=== PATIENT | female | born 1940 | race African-American/Black ===

== ENCOUNTER → 2019-04-19 | Outpatient (CLI) | payer MEDICARE, BC ==
--- NOTE | 2019-04-19 13:40 | RAD ---
Right lower extremity venous doppler ultrasound History: Right leg pain and swelling Findings: Multiple grayscale, color, and duplex spectral analysis sonographic images were acquired of the right lower extremity veins to evaluate for the presence of DVT. There is normal phasicity. Normal compression, color-flow, and augmentation is demonstrated from the right common femoral to the popliteal veins. There is normal color flow of the proximal greater saphenous and profunda femoris veins. There is normal color flow of segments of the calf veins. Impression: 1. There is no evidence of deep venous thrombosis from the right common femoral to the popliteal veins. Electronically signed by: Bravo Branham MD (04/19/2019 1:37 PM) [id number]
== END | disposition home or self-care (01) ==
LOC: US 12:27
PROVIDERS: ATTEND Internal Medicine
DX: M79.604 Pain in right leg (principal); M79.89 Other specified soft tissue disorders
CPT/HCPCS: 93971

== ENCOUNTER 2020-07-20 17:41 | Emergency (ER) | payer MEDICARE, BC ==
[~2020-07-20] VITALS: Ht 160 cm; Wt 63.6 kg
--- NOTE | 2020-07-20 18:22 | PHYS DOC ---
Past Medical History Past Medical History: Dementia, Hypertension Past Surgical History: No Surgical History Smoking Status: Never Smoker Alcohol Use: None General Adult EDM: Chief Complaint: OTHER COMPLAINTS HPI: HPI: Patient is a 80 year old female with history of dementia, hypertension, who presents to the ED today with the daughter, daughter states they were sitting at home and patient grabbed her chest. She did not complain of any pain. Daughter got concerned and started hitting patient on the back thinking patient is choking, patient was not eating anything at that point. The daughter states she had had some orange juice a couple minutes prior to this. She states patient was not coughing either. She states a couple minutes later patient stopped grabbing her chest then after a few minutes she grabbed her chest again. She states this time she decided to bring patient to the ED. Patient has no complaints and is not grabbing her chest. Review of Systems: Review of Systems: Constitutional: Denies fever or chills. [] Eyes: Denies change in visual acuity. [] HENT: Denies nasal congestion or sore throat. [] Respiratory: Denies cough or shortness of breath. [] Cardiovascular: patient grabbed chest. Denies chest pain or edema. [] GI: Denies abdominal pain, nausea, vomiting, bloody stools or diarrhea. [] : Denies dysuria. [] Musculoskeletal: Denies back pain or joint pain. [] Integument: Denies rash. [] Neurologic: Denies headache, focal weakness or sensory changes. [] Endocrine: Denies polyuria or polydipsia. [] Lymphatic: Denies swollen glands. [] Psychiatric: Denies depression or anxiety. [] Hx provided by daughter. Heart Score: HEART Score for Chest Pain: HEART Score for Chest Pain Response (Comments) Value History Slighlty/Non-Suspicious 0 ECG Normal 0 Age > 65 2 Risk Factors 1 or 2 Risk Factors 1 Troponin < Normal Limit 0 Total 3 Risk Factors: Risk Factors: DM, Current or recent (<one month) smoker, HTN, HLP, family history of CAD, obesity. Risk Scores: Score 0 - 3: 2.5% MACE over next 6 weeks - Discharge Home Score 4 - 6: 20.3% MACE over next 6 weeks - Admit for Clinical Observation Score 7 - 10: 72.7% MACE over next 6 weeks - Early Invasive Strategies Allergies: Allergies: Allergies Coded Allergies Type Severity Reaction Last Updated Verified Penicillins Allergy Unknown 07/20/20 Yes Physical Exam: PE: Constitutional: Well developed, well nourished, no acute distress, non-toxic appearance. [] HENT: Normocephalic, atraumatic, bilateral external ears normal, oropharynx moist, no oral exudates, nose normal. [] Eyes: PERRLA, EOMI, conjunctiva normal, no discharge. [] Neck: Normal range of motion, no tenderness, supple, no stridor. [] Cardiovascular:Heart rate regular rhythm, no murmur [] Lungs & Thorax: Bilateral breath sounds clear to auscultation [] Abdomen: Bowel sounds normal, soft, no tenderness, no masses, no pulsatile masses. [] Skin: Warm, dry, no erythema, no rash. [] Back: No tenderness, no CVA tenderness. [] Extremities: No tenderness, no cyanosis, no clubbing, ROM intact, no edema. [] Neurologic: Alert and oriented X 2, normal motor function, normal sensory function, no focal deficits noted. [] Psychologic: Affect normal, judgement normal, mood normal. [] Current Patient Data: Vital Signs: Vital Signs Date Time Temp Pulse Resp B/P (MAP) Pulse Ox O2 Delivery O2 Flow Rate FiO2 07/20/20 17:58 98.1 79 20 161/82 (108) 96 Room Air 98.1 EKG: EKG: [] Radiology/Procedures: Radiology/Procedures: []PROCEDURE: PORTABLE CHEST 1V Exam: Chest one view INDICATION: Chest pain TECHNIQUE: Frontal view of the chest Comparisons: None FINDINGS: The cardiomediastinal silhouette and pulmonary vessels are within normal limits. The lung and pleural spaces are clear. IMPRESSION: No acute cardiopulmonary process. Electronically signed by: Amna Lockhart MD (07/20/2020 8:02 PM) [facility] DICTATED and SIGNED BY: AMNA LOCKHART MD DATE: 07/20/[id number] 0 Course & Med Decision Making: Course & Med Decision Making Pertinent Labs and Imaging studies reviewed. (See chart for details) This is a 80-year-old female patient presenting to the ED today with her daughter who reports patient grabbed her chest earlier today. Patient has history of dementia. See HPI. She is a very poor historian. She has no complaints of chest pain. Her cardiac work-up is negative, her white count was 3.2, we do not know her baseline, she was tested for COVID-19. She was discharged to home. Follow-up with her PCP in the course of this week, daughter provided return precautions. Dragon Disclaimer: Dragon Disclaimer: This electronic medical record was generated, in whole or in part, using a voice recognition dictation system. Departure Departure Impression: Primary Impression: Person under investigation for COVID-19 Additional Impression: Well adult health check Disposition: 01 DC HOME SELF CARE/HOMELESS Condition: STABLE Referrals: SOLO TORRES MD (PCP) Follow-up in the course of this week Patient Instructions: Viral Syndrome Additional Instructions: Vianey was evaluated in the emergency room, her cardiac work-up is negative. She was tested for COVID-19. She needs to quarantine herself until her results are back. We will call you when her results are back. Bring her back to the ED at any point symptoms worsen. SALINA GILLIS [employer] Jul 20, 2020 18:22
[2020-07-20 18:54] LABS: BASO % 1 % (0-3); EOS % 1 % (0-3); HEMATOCRIT 30.2 % (36.0-47.0); HEMOGLOBIN 10.2 g/dL (12.0-15.5); LYMPH # 1.2 x10^3/uL (1.0-4.8); LYMPH % 37 % (24-48); MEAN CORPUSCULAR HEMOGLOBIN 29 pg (25-35); MEAN CORPUSCULAR HGB CONC 34 g/dL (31-37); MEAN CORPUSCULAR VOLUME 87 fL (79-100); MONO # 0.3 x10^3/uL (0.0-1.1); MONO % 8 % (0-9); NEUT # 1.7 x10^3/uL (1.8-7.7); NEUT % 53 % (31-73); PLATELET COUNT 220 x10^3/uL (140-400); RED BLOOD COUNT 3.48 x10^6/uL (3.50-5.40); RED CELL DISTRIBUTION WIDTH 14.5 % (11.5-14.5); WHITE BLOOD COUNT 3.2 x10^3/uL (4.0-11.0)
[2020-07-20 19:10] LABS: BILIRUBIN,URINE NEGATIVE (NEG); CLARITY,URINE CLEAR; COLOR,URINE YELLOW; NITRITE,URINE NEGATIVE (NEG); PH,URINE 6.5 (<5.0-8.0); PROTEIN,URINE NEGATIVE (NEG-TRACE); UROBILINOGEN,URINE 0.2 mg/dL (0.2 mg/dL)
[2020-07-20 19:16] LABS: CALCIUM 7.9 mg/dL (8.5-10.1); CREATININE 0.9 mg/dL (0.6-1.0); GFR 72.5; POTASSIUM 3.6 mmol/L (3.5-5.1)
[2020-07-20 19:17] LABS: BACTERIA,URINE 0 /HPF (0-FEW); RBC,URINE OCC /HPF (0-2); WBC,URINE 0 /HPF (0-4)
[2020-07-20 19:19] LABS: ALBUMIN 2.3 g/dL (3.4-5.0); ALBUMIN/GLOBULIN RATIO 0.4 (1.0-1.7); TOTAL BILIRUBIN 0.2 mg/dL (0.2-1.0)
[2020-07-20 19:20] LABS: BARBITURATES NEG (NEG); BENZODIAZEPINES NEG (NEG); CANNABINOIDS NEG (NEG); COCAINE NEG (NEG); METHADONE NEG (NEG); OPIATES NEG (NEG); PHENCYCLIDINE NEG (NEG)
[2020-07-20 19:22] LABS: AMPHETAMINE/METHAMPHETAMINE NEG (NEG)
[2020-07-20 20:00] VITALS: BP 166/73
--- NOTE | 2020-07-20 20:04 | RAD ---
Exam: Chest one view INDICATION: Chest pain TECHNIQUE: Frontal view of the chest Comparisons: None FINDINGS: The cardiomediastinal silhouette and pulmonary vessels are within normal limits. The lung and pleural spaces are clear. IMPRESSION: No acute cardiopulmonary process. Electronically signed by: Amna Garnett MD (07/20/2020 8:02 PM) [facility]
--- NOTE | 2020-07-23 12:50 | NUR ---
IP: Informed pt and her daughter of negative COVID test. Both verbalized understanding.
== END 2020-07-20 21:40 | disposition home or self-care (01) ==
LOC: ER 17:41
DX: R07.89 Other chest pain (principal); R41.0 Disorientation, unspecified; F03.90 Unspecified dementia, unspecified severity, without behavioral disturbance, psychotic disturbance, mood disturbance, and anxiety; I10 Essential (primary) hypertension; Z88.0 Allergy status to penicillin; Z20.818 Contact with and (suspected) exposure to other bacterial communicable diseases
CPT/HCPCS: 36415; 71045; 80053; 80307; 81001; 83735; 83880; 84443; 84484; 85025; 99284; C9803; P9612; U0003

== ENCOUNTER 2021-01-10 00:10 | Emergency (ER) | payer MEDICARE, BC ==
[~2021-01-10] VITALS: Ht 160 cm; Wt 84.1 kg
[~2021-01-10 00:10] MED LIST: ASPI-886 PO; ATOR10TA60 PO; CARV3.12 PO; CYAN10002 IM; CYAN1TAB19 PO; DONE5TAB56 PO; LORA-434 PO; LOSA25TA54 PO; MEMA10TA56 PO; QUET25TA PO
[2021-01-10 02:05] LABS: BILIRUBIN,URINE NEGATIVE (NEG); CLARITY,URINE CLEAR; COLOR,URINE YELLOW; NITRITE,URINE NEGATIVE (NEG); PH,URINE 6.5 (<5.0-8.0); PROTEIN,URINE NEGATIVE (NEG-TRACE); UROBILINOGEN,URINE 0.2 mg/dL (0.2 mg/dL)
[2021-01-10 02:23] LABS: CALCIUM 8.3 mg/dL (8.5-10.1); CREATININE 0.7 mg/dL (0.6-1.0); GFR 96.9; POTASSIUM 4.2 mmol/L (3.5-5.1)
[2021-01-10 02:24] LABS: BASO % 1 % (0-3); EOS # 0.1 x10^3/uL (0.0-0.7); EOS % 1 % (0-3); HEMATOCRIT 31.4 % (36.0-47.0); HEMOGLOBIN 10.2 g/dL (12.0-15.5); LYMPH # 1.6 x10^3/uL (1.0-4.8); LYMPH % 32 % (24-48); MEAN CORPUSCULAR HEMOGLOBIN 29 pg (25-35); MEAN CORPUSCULAR HGB CONC 33 g/dL (31-37); MEAN CORPUSCULAR VOLUME 89 fL (79-100); MONO # 0.4 x10^3/uL (0.0-1.1); MONO % 8 % (0-9); NEUT # 2.8 x10^3/uL (1.8-7.7); NEUT % 58 % (31-73); PLATELET COUNT 236 x10^3/uL (140-400); RED BLOOD COUNT 3.53 x10^6/uL (3.50-5.40); RED CELL DISTRIBUTION WIDTH 14.5 % (11.5-14.5); WHITE BLOOD COUNT 4.9 x10^3/uL (4.0-11.0)
[2021-01-10 02:32] LABS: ALBUMIN 2.4 g/dL (3.4-5.0); ALBUMIN/GLOBULIN RATIO 0.4 (1.0-1.7); MAGNESIUM 2.2 mg/dL (1.8-2.4); TOTAL BILIRUBIN 0.3 mg/dL (0.2-1.0); TOTAL PROTEIN 8.1 g/dL (6.4-8.2)
[2021-01-10 02:45] LABS: BACTERIA,URINE MODERATE /HPF (0-FEW)
[2021-01-10 03:08] VITALS: BP 165/92
--- NOTE | 2021-01-10 03:19 | PHYS DOC ---
Past Medical History Past Medical History: Dementia, Hypertension, Other Additional Past Medical Histor: Alzehieimers Past Medical History Limited secondary to dementia and altered mental status Past Surgical History: Other Additional Past Surgical Histo: BIRTHS Past Surgical History Limited secondary to dementia and altered mental status Smoking Status: Former Smoker Alcohol Use: None Drug Use: None Social History Limited secondary to dementia and altered mental status General Adult EDM: Chief Complaint: ALTERED MENTAL STATUS HPI: HPI: 80-year-old female presents via EMS from alf with report of episode of altered mental status. Patient reportedly was very anxious with staff about not being able to go home with her family then stopped responding to them "altogether ". [facility] staff was concerned given the "unresponsiveness "and therefore sent patient to be further evaluated. Patient's daughter reports this is happened multiple times in the past and is secondary to patient "not getting her own way ". Patient does have history of dementia and is a poor historian at baseline. No history of recent trauma. No history of fever. History of present illness limited secondary to dementia and altered mental status. Review of Systems: Review of Systems: Review of systems limited secondary to dementia and altered mental status Heart Score: C/O Chest Pain: N/A Allergies: Allergies: Allergies Coded Allergies Type Severity Reaction Last Updated Verified Penicillins Allergy Intermediate 10/30/20 Yes Physical Exam: PE: Constitutional: Well developed, well nourished, no acute distress, non-toxic ap pearance HENT: Normocephalic, atraumatic Eyes: PERRL, EOMI, conjunctiva normal, no discharge Neck: Normal range of motion, no tenderness, supple Lungs & Thorax: No respiratory distress, equal chest rise and fall Abdomen: Soft, no tenderness Skin: Warm, dry, no erythema, no rash Extremities: No tenderness, ROM intact, no edema Neurologic: Alert and oriented X 3, normal motor function, normal sensory function, no focal deficits noted Psychologic: Affect agitated, judgment abnormal Current Patient Data: Labs: Laboratory Tests Test 01/10/21 01:30 01/10/21 02:00 White Blood Count 4.9 x10^3/uL (4.0-11.0) Red Blood Count 3.53 x10^6/uL (3.50-5.40) Hemoglobin 10.2 g/dL (12.0-15.5) L Hematocrit 31.4 % (36.0-47.0) L Mean Corpuscular Volume 89 fL (79-100) Mean Corpuscular Hemoglobin 29 pg (25-35) Mean Corpuscular Hemoglobin Concent 33 g/dL (31-37) Red Cell Distribution Width 14.5 % (11.5-14.5) Platelet Count 236 x10^3/uL (140-400) Neutrophils (%) (Auto) 58 % (31-73) Lymphocytes (%) (Auto) 32 % (24-48) Monocytes (%) (Auto) 8 % (0-9) Eosinophils (%) (Auto) 1 % (0-3) Basophils (%) (Auto) 1 % (0-3) Neutrophils # (Auto) 2.8 x10^3/uL (1.8-7.7) Lymphocytes # (Auto) 1.6 x10^3/uL (1.0-4.8) Monocytes # (Auto) 0.4 x10^3/uL (0.0-1.1) Eosinophils # (Auto) 0.1 x10^3/uL (0.0-0.7) Basophils # (Auto) 0.0 x10^3/uL (0.0-0.2) Sodium Level 143 mmol/L (136-145) Potassium Level 4.2 mmol/L (3.5-5.1) Chloride Level 110 mmol/L (98-107) H Carbon Dioxide Level 32 mmol/L (21-32) Anion Gap 1 (6-14) L Blood Urea Nitrogen 16 mg/dL (7-20) Creatinine 0.7 mg/dL (0.6-1.0) Estimated GFR (Cockcroft-Gault) 96.9 BUN/Creatinine Ratio 23 (6-20) H Glucose Level 91 mg/dL (70-99) Lactic Acid Level 1.7 mmol/L (0.4-2.0) Calcium Level 8.3 mg/dL (8.5-10.1) L Magnesium Level 2.2 mg/dL (1.8-2.4) Total Bilirubin 0.3 mg/dL (0.2-1.0) Aspartate Amino Transferase (AST) 31 U/L (15-37) Alanine Aminotransferase (ALT) 22 U/L (14-59) Alkaline Phosphatase 50 U/L (46-116) Ammonia < 10 mcmol/L (11-34) L Creatine Kinase 192 U/L (26-192) Creatine Kinase MB (Mass) 1.7 ng/mL (0.0-3.6) Creatine Kinase MB Relative Index 0.9 % (0-4) Troponin I Quantitative < 0.017 ng/mL (0.000-0.055) Total Protein 8.1 g/dL (6.4-8.2) Albumin 2.4 g/dL (3.4-5.0) L Albumin/Globulin Ratio 0.4 (1.0-1.7) L Urine Collection Type Unknown Urine Color Yellow Urine Clarity Clear Urine pH 6.5 (<5.0-8.0) Urine Specific [place] <=1.005 (1.000-1.030) Urine Protein Negative mg/dL (NEG-TRACE) Urine Glucose (UA) Negative mg/dL (NEG) Urine Ketones (Stick) Negative mg/dL (NEG) Urine Blood Negative (NEG) Urine Nitrite Negative (NEG) Urine Bilirubin Negative (NEG) Urine Urobilinogen Dipstick 0.2 mg/dL (0.2 mg/dL) Urine Leukocyte Esterase Trace (NEG) Urine RBC 1-2 /HPF (0-2) Urine WBC 1-4 /HPF (0-4) Urine Squamous Epithelial Cells Few /LPF Urine Bacteria Moderate /HPF (0-FEW) Laboratory Tests 01/10/21 01:30 Laboratory Tests 01/10/21 01:30 Vital Signs: Vital Signs Date Time Temp Pulse Resp B/P (MAP) Pulse Ox O2 Delivery O2 Flow Rate FiO2 01/10/21 01:28 72 169/72 (104) 99 Room Air 01/10/21 00:10 97.6 16 97.6 EKG: EKG: @0124 Sinus bradycardia at 57bpm, NO ST elevation, QRS 84ms, QT/QTc 446/437ms, t wave inversions noted to II, aVF and V2-V6 Radiology/Procedures: Radiology/Procedures: PROCEDURE: PORTABLE CHEST 1V EXAM: AP View of the chest DATE: 01/10/2021 2:13 AM INDICATION: Reason: altered mental status / Spl. Instructions: / History: COMPARISON: 11/30/2020 FINDINGS: The heart is not enlarged. Aortic calcifications are seen Mediastinal and hilar contours are stable. No focal parenchymal airspace opacity. No pleural effusion or pneumothorax. IMPRESSION: 1. No radiographic evidence for acute cardiopulmonary process. Electronically signed by: Javan Hernandez MD (01/10/2021 3:24 AM) [facility] PROCEDURE: CT HEAD WO CONTRAST EXAM: CT Head without IV contrast CLINICAL HISTORY: Reason: altered mental status / Spl. Instructions: / History: COMPARISON: None. TECHNIQUE: Routine CT of the head without contrast. PQRS compliance statement - One or more of the following individualized dose reduction techniques were utilized for this study: 1. Automated exposure control 2. Adjustment of the mA and/or kV according to patient size 3. Use of iterative reconstruction technique FINDINGS: There is no evidence of hemorrhage, mass or extra-axial fluid collection. Ramos-white differentiation is maintained with no evidence of edema. Subcortical, periventricular as well as deep white matter hypoattenuation likely changes of chronic small vessel disease. There is no mass effect or shift of the intracranial structures. The ventricles and cerebral sulci are prominent for the patients stated age consistent with generalized cerebral volume loss. The cerebellum and brainstem are unremarkable. The calvarium demonstrates no evidence of fracture or focal lesion. There is normal aeration of the visualized paranasal sinuses and mastoid air cells. The visualized portions of the orbits are normal. IMPRESSION: 1. No evidence for acute intracranial process. 2. White matter changes likely chronic small vessel disease. 3. The ventricles and cerebral sulci are prominent for the patients stated age consistent with generalized cerebral volume loss. Electronically signed by: Javan Hernandez MD (01/10/2021 4:29 AM) [facility] Course & Med Decision Making: Course & Med Decision Making Pertinent Labs and Imaging studies reviewed. (See chart for details) Elderly patient with past medical history of dementia presents with report of altered mental status while at the alf. Patient did receive dose of pain medication which she reports is currently making her sleepy. Patient's family member reported patient has had similar episodes in the past. CT head without acute process. Chest x-ray stable. EKG also stable. Patient stable for discharge back to alf with outpatient follow-up with PCP. Vinny Disclaimer: Vinny Disclaimer: This electronic medical record was generated, in whole or in part, using a voice recognition dictation system. Departure Departure Impression: Primary Impression: AMS (altered mental status) Qualified Codes: R41.82 - Altered mental status, unspecified Additional Impression: History of dementia Disposition: 01 HOME / SELF CARE / HOMELESS (back to alf) Condition: STABLE Referrals: SOLO TORRES MD (PCP) Patient Instructions: Altered Mental Status, Dementia, [id number] KELTON CEBALLOS DO Jan 10, 2021 03:19
--- NOTE | 2021-01-10 03:27 | RAD ---
EXAM: AP View of the chest DATE: 01/10/2021 2:13 AM INDICATION: Reason: altered mental status / Spl. Instructions: / History: COMPARISON: 11/30/2020 FINDINGS: The heart is not enlarged. Aortic calcifications are seen Mediastinal and hilar contours are stable. No focal parenchymal airspace opacity. No pleural effusion or pneumothorax. IMPRESSION: 1. No radiographic evidence for acute cardiopulmonary process. Electronically signed by: Javan Hernandez MD (01/10/2021 3:24 AM) [facility]
--- NOTE | 2021-01-10 04:31 | RAD ---
EXAM: CT Head without IV contrast CLINICAL HISTORY: Reason: altered mental status / Spl. Instructions: / History: COMPARISON: None. TECHNIQUE: Routine CT of the head without contrast. PQRS compliance statement - One or more of the following individualized dose reduction techniques wer e utilized for this study: 1. Automated exposure control 2. Adjustment of the mA and/or kV according to patient size 3. Use of iterative reconstruction technique FINDINGS: There is no evidence of hemorrhage, mass or extra-axial fluid collection. Ramos-white differentiation is maintained with no evidence of edema. Subcortical, periventricular as w ell as deep white matter hypoattenuation likely changes of chronic small vessel disease. There is no mass effect or shift of the intracranial structures. The ventricles and cerebral sulci are prominent for the patients stated age consistent with generaliz ed cerebral volume loss. The cerebellum and brainstem are unremarkable. The calvarium demonstrates no evidence of fracture or focal lesion. There is normal aeration of the visualized paranasal sinuses and mastoid air cells. The visualized portions of the orbits are normal. IMPRESSION: 1. No evidence for acute intracranial process. 2. White matter changes likely chronic small vessel disease. 3. The ventricles and cerebral sulci are prominent for the patients stated age consistent with gener alized cerebral volume loss. Electronically signed by: Javan Hernandez MD (01/10/2021 4:29 AM) [facility]
--- NOTE | 2021-01-10 04:34 | EKG ---
[facility] [address] [place] [address] Test Date: 2021-01-10 Test Time: 01:24:09 Pat Name: MIMI MAHER Department: Room: Gender: F [employer]: : 1940 Requested By: KELTON CEBALLOS Order Number: [id number] Reading MD: Measurements Intervals [place] Rate: 57 P: 64 W[place]: 186 QRS: 15 QRSD: 84 T: -105 QT: 446 QTc: 437 Interpretive Statements SINUS RHYTHM LVH WITH REPOLARIZATION ABNORMALITY ABNORMAL ECG RI6.01 No previous ECG available for comparison
== END 2021-01-10 05:38 | disposition home or self-care (01) ==
LOC: ER 00:10
DX: R41.82 Altered mental status, unspecified (principal); I10 Essential (primary) hypertension; G30.9 Alzheimer's disease, unspecified; F02.80 Dementia in other diseases classified elsewhere, unspecified severity, without behavioral disturbance, psychotic disturbance, mood disturbance, and anxiety; Z88.0 Allergy status to penicillin
CPT/HCPCS: 36415; 70450; 71045; 80053; 81001; 82140; 82553; 83605; 83735; 84484; 85025; 87086; 93005; 99285